=== PATIENT | female | born 1995 | race Caucasian/White ===

== ENCOUNTER 2018-12-21 16:22 | Emergency (ER) | payer OTHER ==
[2018-12-21] MEDS: HYDROCODONE/APAP (10/325) TAB PO (16:56)
== END 2018-12-21 18:29 | disposition home or self-care (01) ==
LOC: E/R 16:22 → FTE 18:29
DX: S00.11XA Contusion of right eyelid and periocular area, initial encounter (principal); F07.81 Postconcussional syndrome; G44.309 Post-traumatic headache, unspecified, not intractable; V49.40XA Driver injured in collision with unspecified motor vehicles in traffic accident, initial encounter
CPT/HCPCS: 70450; 70486; 81025; 99284-25